=== PATIENT | male | born 1970 | race Caucasian/White ===

== ENCOUNTER 2017-10-07 09:46 | Inpatient (IN) | payer BC ==
[~2017-10-07] VITALS: Ht 182.9 cm; Wt 87.5 kg
[2017-10-07] VITALS (375 sets, daily range): BP systolic 103–131; BP diastolic 68–88; PULSE 74–78; TEMP 97.1–97.3; O2SAT 85–100
[~2017-10-07 09:46] MED LIST: CEPHALEXIN500 M1 PO; NO HOME MEDICATIONS; NORCO 325 MG-51 TAB PO
[2017-10-07 10:30] LABS: BASO % 0.3 % (0.0-2.0); EOS # 0.1 (0.0-0.7); EOS % 0.9 % (0-4.0); GRAN # 6.4 (1.4-6.5); GRAN % 70.2 % (42.2-75.2); HEMATOCRIT 47.9 % (42.0-52.0); HEMOGLOBIN 16.2 g/dl (13.5-18.0); LYMPH # 1.9 (1.2-3.4); LYMPH % 20.3 % (20.0-51.0); MEAN CELL VOLUME 94 fl (80.0-100.0); MEAN CORPUSCULAR HEMOGLOBIN 32 pg (27.0-31.0); MEAN CORPUSCULAR HGB CONC 34 g/dl (33.0-37.0); MEAN PLATELET VOLUME 10.4 fl (7.4-10.4); MONO # 0.7 (0.1-0.6); MONO % 8.1 % (1.7-9.3); PLATELET COUNT 269 K/mm3 (130-400); RED BLOOD COUNT 5.11 M/mm3 (4.20-5.60); REDCELL DISTRIBUTION WIDTH-CV 13.1 % (11.5-14.5)
[2017-10-07 10:32] LABS: INR 1.1 (0.8-3.0); PROTHROMBIN TIME 12.5 SECONDS (9.7-12.8)
[2017-10-07 10:34] LABS: PARTIAL THROMBOPLASTIN TIME 38.7 SECONDS (26.0-37.0)
[2017-10-07 10:41] LABS: ALANINE AMINOTRANSFERASE 60 U/L (21-72); ALBUMIN 4.8 gm/dL (3.5-5.0); ALCOHOL(ethanol),MEDICAL < 10 mg/dL; ALKALINE PHOSPHATASE 80 U/L (50-136); ANION GAP 17 mmol/L (7-16); AST,SGOT 34 U/L (15-37); BILIRUBIN,TOTAL 0.9 mg/dL (0.0-1.0); BLOOD UREA NITROGEN 23 mg/dL (9-20); CARBON DIOXIDE 23 mmol/L (22-30); CHLORIDE 101 mmol/L (98-107); CREATINE KINASE 174 U/L (55-170); CREATININE, serum 1.18 mg/dL (0.66-1.25); GLUCOSE 133 mg/dL (74-106); LIPASE 110 U/L (23-300); MAGNESIUM 1.9 mg/dL (1.6-2.3); PHOSPHOROUS 3.3 mg/dL (2.5-4.5); POTASSIUM 4.7 mmol/L (3.4-5.0); SODIUM 141 mmol/L (137-145); TOTAL PROTEIN 8.9 gm/dL (6.4-8.2)
[2017-10-07 11:15] LABS: TROPONIN-I 0.051 ng/mL (0.000-0.034)
[2017-10-07 12:21] LABS: COLLECTION METHOD CLEAN CATCH
[2017-10-07 12:28] LABS: MUCOUS Present /lpf; PH 5 (5-8); SQUAMOUS EPITHELIAL None Seen /hpf; URINE APPEARANCE Clear; URINE BACTERIA Rare /hpf; URINE BILIRUBIN Negative (NEGATIVE); URINE BLOOD Negative (NEGATIVE); URINE COLOR Yellow; URINE GLUCOSE Negative (NEGATIVE); URINE KETONE 2+ (NEGATIVE); URINE LEUKOCYTE ESTERASE Negative (NEGATIVE); URINE NITRATE Negative (NEGATIVE); URINE PROTEIN(semi-quant) Negative (NEGATIVE); URINE UROBILINOGEN Negative (NEGATIVE)
[2017-10-08] VITALS (550 sets, daily range): BP systolic 106–156; BP diastolic 65–101; PULSE 47–114; TEMP 97–98.5; O2SAT 73–100
[2017-10-09 00:35] VITALS: BP 112/75; PULSE 47; TEMP 97
[2017-10-09 04:50] VITALS: BP 122/81; PULSE 45; TEMP 97.6
[2017-10-09 07:08] LABS: CHOLESTEROL RISK RATIO 4.6
[2017-10-09 07:36] LABS: THYROID STIMULATING HORMONE 2.65 uIU/mL (0.465-4.680)
[2017-10-09 08:00] VITALS: BP 134/80; PULSE 76; TEMP 98.3
[2017-10-09] MEDS ORDERED: TOPROL XL 25MG25 MG PO (09:58)
[2017-10-09] MEDS ORDERED: ASPIRIN E.C. 8181 MG PO (09:58)
[2017-10-09] MEDS ORDERED: NITROSTAT0.4 MG/TAB SL (09:59)
== END 2017-10-09 09:30 | disposition left against medical advice (07) | DRG 312 ==
LOC: COL.ER 09:46 → ICU 12:03
PROVIDERS: Emergency Medicine; Internal Medicine
DX: R55 Syncope and collapse (principal); Q23.1 Congenital insufficiency of aortic valve; I10 Essential (primary) hypertension; R73.03 Prediabetes; I71.2 Thoracic aortic aneurysm, without rupture
CPT/HCPCS: 99223-AI; 99232-AI; 99239; A9502; J1644; J2704; J2785; J3010; J7030